=== PATIENT | male | born 1960 | race Caucasian/White ===

== ENCOUNTER 2017-08-22 15:43 | Inpatient (IN) | payer MEDICAID, MEDICARE ==
--- NOTE | 2017-08-22 16:12 | ED Physician Chart ---
ED Chief Complaint/HPI - Patient Information Date Seen:: 08/22/17 Time Seen:: 15:45 Chief Complaint:: G-Tube Dysfunction History of Present Illness:: onset x one day of g-tube dysfunction; no report of trauma, H/As, neck pain, C/P , cough, SOB, Abd. Pain, A/N/V/D/C, fever, chills, or urinary s/s Allergies:: Allergies Allergy/AdvReac Type Severity Reaction Status Date / Time No Known Allergies Allergy Verified 08/22/17 16:02 Historian:: Patient, EMS Review:: Nurse's Note Reviewed, EMS run form Reviewed ED Review of Systems - Review of Systems General/Constitutional: No fever, No chills, No weight loss, No weakness, No diaphoresis, No edema, No loss of appetite Skin: No skin lesions, No rash, No bruising Head: No headache, No light-headedness Eyes: No loss of vision, No pain, No diplopia ENT: No earache, No nasal drainage, No sore throat, No tinnitus Neck: No neck pain, No swelling, No thyromegaly, No stiffness, No mass noted Cardio Vascular: No chest pain, No palpitations, No PND, No orthopnea, No edema Pulmonary: No SOB, No cough, No sputum, No wheezing GI: No nausea, No vomiting, No diarrhea, No pain, No melena, No hematochezia, No constipation, No hematemesis G/U: No dysuria, No frequency, No hematuria, No nacturia Musculoskeletal: No bone or joint pain, No back pain, No muscle pain Endocrine: No polyuria, No polydipsia Psychiatric: No prior psych history, No depression, No anxiety, No suicidal ideation, No homicidal ideation, No auditory hallucination, No visual hallucination Hematopoietic: No bruising, No lymphadenopathy Allergic/Immuno: No urticaria, No angioedema Neurological: No syncope, Focal symptoms, Weakness, Paresthesia, Headache, Seizure, No dizziness, Confusion, No vertigo ED Past Medical History - Past Medical History Obtainable: Yes Past Medical History: HTN, DM, CVA/TIA, Dyslipidemia, Seizures, Dementia Family History: HTN Social History: Non Smoker, No Alcohol, No Drug Use, Single, Care Facility Surgical History: PEG/GTube Psychiatricy History: Dementia Medication: Reviewed ED Physical Exam - Physical Examination General/Constitutional: Awake, Well-developed, well-nourished, Alert, No distress, GCS 15, Non-toxic appearing, Ambulatory Head: Atraumatic Eyes: Lids, conjuctiva normal, PERRL, EOMI Skin: Nl inspection, No rash, No skin lesions, No ecchymosis, Well hydrated, No lymphadenopathy ENMT: External ears, nose nl, Nasal exam nl, Lips, teeth, gums nl Neck: Nontender, Full ROM w/o pain, No JVD, No nuchal rigidity, No bruit, No mass, No stridor Other Neck comments:: supple; no meningeal signs; no cervical tenderness; no bruits Respiratory: Nl effort/Exclusion, Clear to Auscultation, No Wheeze/Rhonchi/Rales Cardio Vascular: RRR, No murmur, gallop, rubs, NL S1 S2, Carotid/Femoral/Distal pulses equal bilaterally GI: No tenderness/rebounding/guarding, No organomegaly, No hernia, Normal BS's, Nondistended, No mass/bruits, No McBurney tenderness, Rectum exam nl Other GI comments:: no pulsatile masses; + G-Tube Dysfunction : No CVA tenderness Extremities: No tenderness or effusion, Full ROM, normal strength in all extremities, No edema, Normal digits & nails Neuro/Psych: DTR's symmetric, Normal sensory exam, Normal motor strength, Judgement/insight normal, Mood normal, Normal gait, No focal deficits Other Neuro/Psych comments:: pt is nonverbal; Misc: Normal back, No paraspinal tenderness ED Septic Shock - . Is Septic Shock (SBP<90, OR Lactate>4 mmol\L) present?: No ED Reassessment (Disposition) - Reassessment Reassessment Condition:: Improved - Diagnosis Diagnosis:: G-tube Dysfunction; HTN; DM; CVA; Hyperlipidemia; Dementia; PEG Tube Malfunction - Aftercare/Follow up Instructions Aftercare/Follow-Up Instructions:: Counseled pt regarding lab results/diagnosis & need follow up, Counseled pt & family regarding lab results/diagnosis & need follow up - Patient Disposition Discharge/Transfer:: Acute Care w/in this hosp Accepting Physician:: Dr. Pritchard Time Called:: 1491 Time Responded:: 16:45 Admitted to:: Med/Surg Spoke to:: Dr. Pritchard Admitting Medical Physician:: Dr. Pritchard Condition at Disposition:: Stable, Improved
[2017-08-22 17:03] LABS: % BASOPHILS 0.7 % (0.0-2.0); % EOSINOPHILS 2.2 % (0.0-5.0); % LYMPHOCYTES 28.6 % (20.0-50.0); % MONOCYTES 6.3 % (2.0-10.0); % NEUTROPHILS 62.2 % (40.0-80.0); BASOPHILE ABSOLUTE 0.1 Th/cumm (0-0.2); EOSINOPHILE ABSOLUTE 0.2 Th/cmm (0.1-0.4); HEMATOCRIT 46.8 % (41.0-60); LYMPHOCYTE ABSOLUTE 2.5 Th/cmm (1.5-3.0); MEAN CELL VOLUME 91.3 fl (80-99); MEAN CORPUSCULAR HEMOGLOBIN 31.2 pg (26.0-30.0); MEAN CORPUSCULAR HGB CONC 34.1 pg (28.0-36.0); MEAN PLATELET VOLUME 8.9 fl; MONOCYTE ABSOLUTE 0.6 Th/cmm (0.3-1.0); NEUTROPHILE ABSOLUTE 5.4 Th/cmm (1.8-8.0); PLATELET COUNT 192 Th/cmm (150-400); RED BLOOD COUNT 5.13 Mil/cmm (4.30-5.70); RED CELL DISTRIBUTION WIDTH 12.5 % (11.5-20.0); WHITE BLOOD COUNT 8.8 Th/cmm (4.8-10.8)
[2017-08-22 17:14] LABS: INR 0.97 (0.5-1.4); PROTHROMBIN TIME (TEST) 10.1 SECONDS (9.5-11.5)
[2017-08-22 17:17] LABS: ALB/GLOB RATIO 1.3 (1.0-1.8); ALBUMIN 4.1 gm/dL (4.2-5.5); ALKALINE PHOSPHATASE 110 U/L (34-104); ANION GAP 7.8 (7.0-16.0); BILIRUBIN,TOTAL 0.6 mg/dL (0.3-1.0); BUN - UREA NITROGEN 23 mg/dL (7-25); CARBON DIOXIDE 33.4 mEq/L (21.0-31.0); CHLORIDE 106 mEq/L (98-107); CHOLESTEROL 160 mg/dL (<200); CREATININE - SERUM 0.5 mg/dL (0.7-1.3); CREATININE KINASE 375 U/L (30-223); GFR AFRICAN-AMERICAN > 60.0 ml/min (>90); GFR NON AFRICAN-AMERICAN > 60.0 ml/min; GLUCOSE 150 mg/dL (70-105); HDL -HIGH DENSITY LIPOPROTEIN 41 mg/dL (23-92); POTASSIUM SERUM 4.2 mEq/L (3.5-5.1); SGOT 27 U/L (13-39); SGPT/ALT 45 U/L (7-52); SODIUM SERUM 143 mEq/L (136-145); TOTAL PROTEIN,SERUM 7.3 gm/dL (6.0-8.3); TRIGLYCERIDES 120 mg/dL (<150)
[2017-08-22] MEDS ORDERED: Lactulose 10 Gm/15 mL 30mL UDC GT PRN (18:37)
[2017-08-22] MEDS ORDERED: Sodium Chloride 0.9% 1,000 ML IV SCH (18:45)
[2017-08-22] MEDS: Levetiracetam 500 mg/5mL 5mL UDSyr *for ORAL USE ONLY GT SCH (19:46)
[2017-08-23 05:38] LABS: % LYMPHOCYTES 25.3 % (20.0-50.0); % MONOCYTES 6.9 % (2.0-10.0); % NEUTROPHILS 66.8 % (40.0-80.0); EOSINOPHILE ABSOLUTE 0.1 Th/cmm (0.1-0.4); HEMATOCRIT 48.5 % (41.0-60); HEMOGLOBIN 16.6 gm/dL (12-16); LYMPHOCYTE ABSOLUTE 2.3 Th/cmm (1.5-3.0); MEAN CELL VOLUME 90.6 fl (80-99); MEAN CORPUSCULAR HEMOGLOBIN 30.9 pg (26.0-30.0); MEAN CORPUSCULAR HGB CONC 34.1 pg (28.0-36.0); MEAN PLATELET VOLUME 8.9 fl; MONOCYTE ABSOLUTE 0.6 Th/cmm (0.3-1.0); PLATELET COUNT 224 Th/cmm (150-400); RED BLOOD COUNT 5.36 Mil/cmm (4.30-5.70); RED CELL DISTRIBUTION WIDTH 12.3 % (11.5-20.0)
[2017-08-23] MEDS: Levetiracetam 500 mg/5mL 5mL UDSyr *for ORAL USE ONLY GT SCH ×2 (05:47→19:04)
[2017-08-23 06:10] LABS: ALB/GLOB RATIO 1.3 (1.0-1.8); ALBUMIN 4.3 gm/dL (4.2-5.5); ALKALINE PHOSPHATASE 122 U/L (34-104); ANION GAP 10.2 (7.0-16.0); BILIRUBIN,TOTAL 0.8 mg/dL (0.3-1.0); BUN - UREA NITROGEN 18 mg/dL (7-25); CALCIUM SERUM 10.2 mg/dL (8.6-10.3); CARBON DIOXIDE 31.4 mEq/L (21.0-31.0); CHLORIDE 106 mEq/L (98-107); CREATININE - SERUM 0.5 mg/dL (0.7-1.3); GFR AFRICAN-AMERICAN > 60.0 ml/min (>90); GFR NON AFRICAN-AMERICAN > 60.0 ml/min; GLUCOSE 167 mg/dL (70-105); POTASSIUM SERUM 3.6 mEq/L (3.5-5.1); SGOT 24 U/L (13-39); SGPT/ALT 43 U/L (7-52); SODIUM SERUM 144 mEq/L (136-145); TOTAL PROTEIN,SERUM 7.7 gm/dL (6.0-8.3)
--- NOTE | 2017-08-23 07:31 | History and Physical ---
History of Present Illness - HPI Chief Complaint: G-tube malfuntion HPI: This a patient that I follow in a SNF, I received a called from SNF stating that patient pull of G-tube. Order to transfer patient to ER was done. Vital Signs: Last Vital Signs Temp 97.0 F 08/23/17 04:00 Pulse 107 08/23/17 04:00 Resp 20 08/23/17 04:00 BP 138/92 08/23/17 04:00 Pulse Ox 98 08/23/17 04:00 Past Medical History Cardiovascular: Report: HTN Pulmonary: Report: No Pertinent Hx LUBRICATING SPECIALIST: Report: CVA, Dementia, Other (Funtional quadriplegia) GI: Report: Other (Dysphagia) Psych: Report: Other (Dementia,) Musculoskeletal: Report: Muscle Atrophy, Stiffness, Other (Funtional quadriplegia) Rheumatologic: Report: No pertinent Hx Infectious Disease: Report: No Pertinent Hx Renal/: Report: No Pertinent Hx Endocrine: Report: Diabetes Dermatology: Report: No Pertinent Hx Family Medical History - Family Member Mother History Unknown: Yes Social History Smoke: No Alcohol: None Drugs: None Lives: Prison Domestic Violence: Negative - Medications Home Medications: Home Medication Medication Instructions Recorded Type Acetaminophen [Tylenol] 650 mg GT Q4HR PRN 08/22/17 History Alendronate Sodium 70 mg GT Q7D 08/22/17 History Amlodipine Besylate 10 mg GT DAILY 08/22/17 History Bisacodyl [Dulcolax 10 Mg Supp] 10 mg RC Q48H PRN 08/22/17 History Calcium Carbonate/Vitamin D3 1 tab GT BID 08/22/17 History [Calcium 500 + D Tablet] Docusate Sodium [Colace] 250 mg GT HS 08/22/17 History Insulin Human Regular [NovoLIN R] 0 units SUBQ ACHS 08/22/17 History Labetalol [Trandate] 400 mg GT Q8H 08/22/17 History Lactulose 10 gm GT TID PRN 08/22/17 History Levetiracetam [Keppra] 1,000 mg GT Q12H 08/22/17 History Mineral Oil/Petrolatum,White 1 unit OP Q8H 08/22/17 History [Refresh Lacri-Lube Ointment] Potassium Chloride 20 meq GT BID 08/22/17 History Sodium Chloride 3 gm GT TID 08/22/17 History Triamcinolone Acet 0.5% Cream 1 appl TP BID 08/22/17 History [Kenalog 0.5%] - Allergies Allergies/Adverse Reactions: Allergies Allergy/AdvReac Type Severity Reaction Status Date / Time No Known Allergies Allergy Verified 08/22/17 16:02 Review of Systems - Review of Systems Constitutional: Report: No Significant Eyes: Report: No Significant ENT: Report: No Significant Respiratory: Report: No Significant Cardiovascular: Report: No Significant Gastrointestinal: Report: Other (G-tube not in place.) Genitourinary: Report: No Significant Musculoskeletal: Report: No Significant Skin: Report: No Significant Neurological: Report: Other (Non verbal, quadriplegic) Physical Exam - Physical Exam HEENT: Report: Ears Nose Throat within normal limits Neck: Report: Within normal limits Cardiovascular Systems: Report: Regular, Rate and Rhythm Respiratory: Report: Breath Sounds are within normal limits Abdomen: Report: Non-tender to palpation Back: Report: Inspection of back is within normal limits. Extremities: Report: Extremities are contracted Skin: Report: Color of skin is within normal limits Neuro/Psych: Report: Other (Patient non verbal) - Lab Results All Lab Results last 24 hours: Laboratory Results - last 24 hr 08/22/17 08/22/17 08/22/17 16:55 16:55 16:55 WBC 8.8 RBC 5.13 Hgb 16.0 Hct 46.8 MCV 91.3 MCH 31.2 H MCHC Differential 34.1 RDW 12.5 Plt Count 192 MPV 8.9 Neutrophils % 62.2 Lymphocytes % 28.6 Monocytes % 6.3 Eosinophils % 2.2 Basophils % 0.7 PT 10.1 INR 0.97 Sodium 143 Potassium 4.2 Chloride 106 Carbon Dioxide 33.4 H Anion Gap 7.8 BUN 23 Creatinine 0.5 L Est GFR ( Amer) > 60.0 Est GFR (Non-Af Amer) > 60.0 BUN/Creatinine Ratio 46.0 Glucose 150 H Calcium 10.0 Total Bilirubin 0.6 AST 27 ALT 45 Alkaline Phosphatase 110 H Creatine Kinase 375 H CK-MB (CK-2) 8.6 H Troponin I B-Natriuretic Peptide Total Protein 7.3 Albumin 4.1 L Globulin 3.2 Albumin/Globulin Ratio 1.3 Triglycerides 120 Cholesterol 160 LDL Cholesterol Direct 116 HDL Cholesterol 41 02/13/18 02/13/18 02/14/18 16:55 16:55 05:28 WBC 9.0 RBC 5.36 Hgb 16.6 Hct 48.5 MCV 90.6 MCH 30.9 H MCHC Differential 34.1 RDW 12.3 Plt Count 224 MPV 8.9 Neutrophils % 66.8 Lymphocytes % 25.3 Monocytes % 6.9 Eosinophils % 1.0 Basophils % 0.0 PT INR Sodium Potassium Chloride Carbon Dioxide Anion Gap BUN Creatinine Est GFR ( Amer) Est GFR (Non-Af Amer) BUN/Creatinine Ratio Glucose Calcium Total Bilirubin AST ALT Alkaline Phosphatase Creatine Kinase CK-MB (CK-2) Troponin I < 0.01 L B-Natriuretic Peptide < 5.0 L Total Protein Albumin Globulin Albumin/Globulin Ratio Triglycerides Cholesterol LDL Cholesterol Direct HDL Cholesterol 08/23/17 05:28 WBC RBC Hgb Hct MCV MCH MCHC Differential RDW Plt Count MPV Neutrophils % Lymphocytes % Monocytes % Eosinophils % Basophils % PT INR Sodium 144 Potassium 3.6 Chloride 106 Carbon Dioxide 31.4 H Anion Gap 10.2 BUN 18 Creatinine 0.5 L Est GFR ( Amer) > 60.0 Est GFR (Non-Af Amer) > 60.0 BUN/Creatinine Ratio 36.0 Glucose 167 H Calcium 10.2 Total Bilirubin 0.8 AST 24 ALT 43 Alkaline Phosphatase 122 H Creatine Kinase CK-MB (CK-2) Troponin I B-Natriuretic Peptide Total Protein 7.7 Albumin 4.3 Globulin 3.4 Albumin/Globulin Ratio 1.3 Triglycerides Cholesterol LDL Cholesterol Direct HDL Cholesterol - Assessment Assessment: Current Active Problems Problem Status Onset DISLODGED JEJUNUM TUBE Acute Patient is awake, alert, eyes, open, not following verbal orders, non verbal. Dx : G-tube malfuntion, Quadriplegia, HTN, DM, S/P CVA, Seizure disorder, Dementia. - Plan Plan: Patient in IV NS. Awaitting G-tube be replaced.
--- NOTE | 2017-08-23 08:14 | Diagnostic Imaging Report ---
Portable chest x-ray Time: 1659 hours History: Chest pain Allowing for portable technique the heart size is normal. No focal pulmonary parenchymal processes. No hilar or mediastinal abnormalities. Mild congestion cannot be excluded, clinical correlation recommended. Impression: No acute abnormalities.
[2017-08-23] MEDS: Calcium Carb/Vit D 500 mg/200 U Tab GT SCH ×2 (09:11→16:58)
[2017-08-23] MEDS: Artificial Tear Ophth Oint 3.5 Gm Tube EACH EYE SCH ×3 (13:52→21:22)
--- NOTE | 2017-08-23 21:53 | Operative Report ---
DATE OF SURGERY: 08/23/2017 PROCEDURE: Change of G-tube. INDICATION FOR PROCEDURE: Malfunctioning of G-tube. The patient has a G-tube which was taken out and new replacement one. Smith was inserted, which was small size. This was done to place a new one. PREOPERATIVE DIAGNOSIS: Malfunctioning G-tube. POSTOPERATIVE DIAGNOSES: Malfunctioning G-tube, status post replacement with a size 18 replacement one. DESCRIPTION OF PROCEDURE: The old Smith was deflated, pulled out of the patient's abdomen, new replacement one size 18 was inserted through the same hole. Balloon was inflated. G-tube was secured in place. Water was infused to the stomach aspirated and documented as good position. RECOMMENDATIONS: Resume feeding, okay to discharge the patient home. Thank you, Dr. Pritchard for allowing me to participate in the care of the patient. If you have any further questions, please let me know. JOB# [id number]
--- NOTE | 2017-08-24 08:14 | Consultation ---
DATE OF CONSULTATION: 08/23/2017 REASON FOR CONSULTATION: Malfunctioning G-tube. HISTORY OF PRESENT ILLNESS: This consult was obtained through the courtesy of Dr. Pritchard for this 57-year-old with history of hypertension, CVA, dementia, admitted to the hospital for malfunctioning G-tube. GI consult was called in for further evaluation. The patient is not able to provide any history. He lives in a care home. The G-tube was malfunctioning and was sent to the ER, it was changed for Smith catheter. GI consult was called in for further evaluation. PAST MEDICAL HISTORY: CVA, dementia, hypertension, muscle atrophy, hypertension, seizure disorder. PAST SURGICAL HISTORY: Not known. SOCIAL HISTORY: At this time, the patient is nonsmoker and nonalcoholic, no IV drug abuser. FAMILY HISTORY: Noncontributory and unobtainable. MEDICATIONS: At home include: Tylenol, Fosamax, amlodipine, Dulcolax, calcium, vitamin D, Colace, insulin, labetalol, lactulose, Keppra, mineral oil. ALLERGIES: No known drug allergies. REVIEW OF SYSTEMS: Unobtainable. PHYSICAL EXAMINATION: GENERAL: The patient is awake, nonverbal. VITAL SIGNS: Blood pressure was 120/98, heart rate was 110, respiratory rate was 17 and temperature was 97.7. HEAD AND NECK: Pupils reactive to light. Extraocular muscles could not be tested. Oral cavity, no lesion. CHEST: Good air entry. LUNGS: Clear to auscultation. CARDIOVASCULAR: Regular rate and rhythm. No murmur or gallop. ABDOMEN: Soft, positive bowel sound. There is a Smith in the site of the G-tube. There is some crusting around it. Bowel sounds are present. EXTREMITIES: Lower extremities, no edema. CENTRAL NERVOUS SYSTEM: Unable to evaluate. LABORATORY DATA: White count is normal, H and H are normal. IMPRESSION: A 57-year-old with malfunctioning G-tube. ASSESSMENT AND PLAN: 1. Malfunctioning G-tube. This will need to be changed, so we will change it to a more one and then we will resume feeding. 2. Dysphagia. The patient will need to be back on the I will change the G-tube first and then resume it. Other medical problems such as hypertension, seizure disorder, dementia, CVA, etc., as per Dr. Pritchard. Thank you, Dr. Pritchard for allowing me to participate in the care of the patient. If you have any further questions, please let me know. JOB# [id number]
--- NOTE | 2017-08-25 08:37 | Discharge Summary ---
General Discharge Summary - Discharge Summary Date of Admission: 08/22/17 Admitting Diagnosis: Disloged G-tube, HTN, Dm, Quadriplegia,Seizure, S/P CVA Discharge Date: 08/23/17 Discharge Diagnosis: Disloged G-tube, Quadriplegia, HTN, DM, Seizure disorder, Dementia, S/P CVA Hospital Course: Patioent was admitted was started in IV, NS, Meds were hold, Consult with GI was done and G-Tube was replaced. Treatment: G-tube was replaced Condition at Discharge: Stable Disposition: Discharge/Transfered to SNF Home Medications: Home Medication Medication Instructions Recorded Type Acetaminophen [Tylenol] 650 mg GT Q4HR PRN 08/22/17 History Alendronate Sodium 70 mg GT Q7D 08/22/17 History Amlodipine Besylate 10 mg GT DAILY 08/22/17 History Bisacodyl [Dulcolax 10 Mg Supp] 10 mg RC Q48H PRN 08/22/17 History Calcium Carbonate/Vitamin D3 1 tab GT BID 08/22/17 History [Calcium 500 + D Tablet] Docusate Sodium [Colace] 250 mg GT HS 08/22/17 History Insulin Human Regular [NovoLIN R*] 0 units SUBQ ACHS 08/22/17 History Labetalol [Trandate] 400 mg GT Q8H 08/22/17 History Lactulose 10 gm GT TID PRN 08/22/17 History Levetiracetam [Keppra] 1,000 mg GT Q12H 08/22/17 History Mineral Oil/Petrolatum,White 1 unit OP Q8H 08/22/17 History [Refresh Lacri-Lube Ointment] Potassium Chloride 20 meq GT BID 08/22/17 History Sodium Chloride 3 gm GT TID 08/22/17 History Triamcinolone Acet 0.5% Cream 1 appl TP BID 08/22/17 History [Kenalog 0.5%] Activity: Bed Rest Discharge Diet: Tube Feeding Consults and Follow-Up: Davis Pritchard [Primary Care Provider] - Consulting Speciality: Other (PCP) Instructions: Care of a Feeding Tube
== END 2017-08-23 21:30 | DRG 252 ==
LOC: ER 15:43 → MSI 16:49
PROVIDERS: ADMIT General Practice; ATTEND General Practice
PROC: 0D20XUZ Change Feeding Device in Upper Intestinal Tract, External Approach (ICD-10-PCS; principal; 2017-08-23)
DX: K94.23 Gastrostomy malfunction (principal); G82.50 Quadriplegia, unspecified; I10 Essential (primary) hypertension; E11.9 Type 2 diabetes mellitus without complications; G40.909 Epilepsy, unspecified, not intractable, without status epilepticus; F03.90 Unspecified dementia, unspecified severity, without behavioral disturbance, psychotic disturbance, mood disturbance, and anxiety; E78.5 Hyperlipidemia, unspecified; M62.50 Muscle wasting and atrophy, not elsewhere classified, unspecified site; R13.10 Dysphagia, unspecified; Z79.899 Other long term (current) drug therapy; Z86.73 Personal history of transient ischemic attack (TIA), and cerebral infarction without residual deficits; Z82.49 Family history of ischemic heart disease and other diseases of the circulatory system; Z79.4 Long term (current) use of insulin
CPT/HCPCS: 36415-UA; 71045-TC; 80053-TC; 80061-TC; 82550-TC; 82553; 82948-90; 83880-TC; 84443-TC; 84484-TC; 85025-TC; 85610-TC; 93005; Z7610